=== PATIENT | female | born 1990 | race Caucasian/White ===

== ENCOUNTER 2016-04-28 13:42 | Emergency (ER) | payer OTHER ==
[~2016-04-28] VITALS: Ht 162.6 cm; Wt 47.2 kg
[~2016-04-28 13:42] MED LIST: ZITH250T PO
[2016-04-28 13:51] VITALS: BP 116/66; PULSE 90; RESP 16; TEMP 99.6; O2SAT 99
[2016-04-28] MEDS ORDERED: AUGM875T PO (14:44)
--- NOTE | 2016-04-28 14:45 | PD ---
HPI Chief Complaint: Bite or Sting Time Seen by Provider: 14:40 Travel History International Travel<30 days: No Contact w/Intl Traveler<30days: No Traveled to known affect area: No History of Present Illness HPI Patient is a 25-year-old female who presented to emergency for evaluation of a cat bite to her right forearm. Patient states she works in a [employer] and was bit at work. She states the cat is up-to-date with the rabies vaccinations. She washed the wound with chlorhexidine and apply topical antibiotic ointment to it after the bite occurred. She denies any other complaints at this time. FORMERLY [facility] Past Medical History Medical History: Denies Significant Hx Influenza Vaccination: No ?: Not Past Surgical History Surgical History: No Previous Surgery Social History Alcohol Use: No Tobacco Use: No Substance Use: No Allergies-Medications (Allergen,Severity, Reaction): Coded Allergies: Sulfa (Verified Allergy, Severe, HIVES, 04/28/16) Reported Meds & Prescriptions Reported Meds & Active Scripts Active No Active Prescriptions or Reported Medications Review of Systems Except as stated in HPI: all other systems reviewed are Neg Skin: Positive Lesions Physical Exam Narrative GENERAL: Well-nourished, well-developed patient. SKIN: Warm and dry. Superficial puncture patel to the volar aspect of the right forearm, superficial abrasion noted to the posterior aspect of the right forearm. No active bleeding noted, no induration or erythema noted. HEAD: Normocephalic. EYES: No scleral icterus. No injection or drainage. NECK: Supple, trachea midline. No JVD or lymphadenopathy. CARDIOVASCULAR: Regular rate and rhythm without murmurs, gallops, or rubs. RESPIRATORY: Breath sounds equal bilaterally. No accessory muscle use. GASTROINTESTINAL: Abdomen soft, non-tender, nondistended. MUSCULOSKELETAL: No cyanosis, or edema. BACK: Nontender without obvious deformity. No CVA tenderness. Data Data Last Documented VS Vital Signs Date Time Temp Pulse Resp B/P Pulse Ox O2 Delivery O2 Flow Rate FiO2 04/28/16 13:51 99.6 90 16 116/66 99 [facility] Medical Decision Making Medical Screen Exam Complete: Yes Emergency Medical Condition: Yes Interpretation(s) Vital Signs Date Time Temp Pulse Resp B/P Pulse Ox O2 Delivery O2 Flow Rate FiO2 04/28/16 13:51 99.6 90 16 116/66 99 Differential Diagnosis Cellulitis versus cat scratch fever versus puncture wound versus other Narrative Course Patient is a 25-year-old female who presents emergency for evaluation after a cat bit her at work. Cat is up-to-date with immunizations. Wounds appear superficial in nature and were well cleaned after they occurred. Patient presents requesting antibiotic therapy. There is currently dose signs or symptoms of infection. Patient was educated on signs and symptoms of infection and advised to return to emergency department immediately for any new or worsening symptoms. Furthermore she can follow-up with her primary doctor if needed. Patient is stable for discharge. Diagnosis Primary Impression: Cat bite of forearm Qualified Code: S51.851A - Cat bite of forearm, right, initial encounter Referrals: Primary Care Physician Patient Instructions: Cat Scratch Disease (ED), General Instructions Additional Instructions: Follow-up with your primary doctor Take medications as directed Return to emergency department for any new or worsening symptoms Med/Other Pt SpecificInfo: Prescription(s) given Scripts Amoxicillin-Clavulanate (Augmentin)875-125 mg [id number] Mg PO BID #20 TAB Ref 0 not for use in CrCl <30 ml/min. Prov:Danna Reed 04/28/16 Disposition: DISCHARGE HOME Condition: Stable Danna Reed Apr 28, 2016 14:45
== END 2016-04-28 15:03 | disposition home or self-care (01) ==
LOC: PHEFT 13:42
DX: S51.851A Open bite of right forearm, initial encounter (principal); W55.01XA Bitten by cat, initial encounter; Y92.89 Other specified places as the place of occurrence of the external cause; Y99.0 Civilian activity done for income or pay
CPT/HCPCS: 99283